=== PATIENT | male | born 1945 | race Caucasian/White ===

== ENCOUNTER 2019-03-23 21:39 | Emergency (ER) | payer OTHER ==
[~2019-03-23] VITALS: Ht 182.9 cm; Wt 138.3 kg
[2019-03-23] MEDS ORDERED: CARVEDILOL ER40 MG (22:05)
[2019-03-23] MEDS ORDERED: ELIQUIS2.5 MG (22:05)
[2019-03-23] MEDS ORDERED: COZAAR25 MG (22:06)
[2019-03-23] MEDS ORDERED: KETOROLAC TROMET5 M1 (22:06)
[2019-03-23] MEDS ORDERED: TAMS0.4C (22:06)
[2019-03-23] MEDS ORDERED: MICROZIDE12.5 MG (22:06)
== END 2019-03-23 22:37 | disposition home or self-care (01) ==
LOC: ER 21:39
DX: S42.295A Other nondisplaced fracture of upper end of left humerus, initial encounter for closed fracture (principal); S42.255A Nondisplaced fracture of greater tuberosity of left humerus, initial encounter for closed fracture; W18.09XA Striking against other object with subsequent fall, initial encounter; Y93.89 Activity, other specified; Y92.814 Boat as the place of occurrence of the external cause; Y99.8 Other external cause status